=== PATIENT | female | born 1965 | race Caucasian/White ===

== ENCOUNTER → 2023-12-01 08:43 | Outpatient (REF) | payer BC, SELFPAY | LOC: WDC 08:43 | PROVIDERS: ATTENDING PHYSICIAN Obstetrics & Gynecology Gynecology | DX: Z12.31 Encounter for screening mammogram for malignant neoplasm of breast (principal) | CPT/HCPCS: 77063; 77067 ==

== ENCOUNTER → 2024-12-07 08:43 | Outpatient (REF) | payer BC, SELFPAY | LOC: WDC 08:43 | PROVIDERS: ATTENDING PHYSICIAN Nurse Practitioner Adult Health | DX: Z12.31 Encounter for screening mammogram for malignant neoplasm of breast (principal) | CPT/HCPCS: 77063; 77067 ==

== ENCOUNTER → 2025-07-12 11:40 | Outpatient (REF) | payer BC, SELFPAY | LOC: RAD 11:40 | PROVIDERS: ATTENDING PHYSICIAN Physician Assistant | DX: M79.645 Pain in left finger(s) (principal) | CPT/HCPCS: 73130 ==